=== PATIENT | male | born 1950 | race Asian ===

== ENCOUNTER 2020-11-12 08:58 | Emergency (ER) | payer MEDICARE, OTHER ==
[~2020-11-12] VITALS: Ht 154.9 cm; Wt 63.6 kg
[~2020-11-12 08:58] MED LIST: ASPI81TA87 PO; CARV12.580 PO; CLOP75TA60 PO; FENO130C14 PO; LEVE250T PO; LORA-702 PO; LOSA25TA2 PO; NITR0.4T SL; PSEU120T89 PO; ROSU40 PO; TRIA1TAB5 PO
[2020-11-12 09:14] VITALS: BP 137/78
[2020-11-12] MEDS ORDERED: BACITRACIN 0.9 GM PACKET OINTMENT TP ONE (10:00)
== END 2020-11-12 10:35 | disposition home or self-care (01) ==
LOC: EMS 08:58
DX: L30.9 Dermatitis, unspecified (principal); I10 Essential (primary) hypertension; I25.2 Old myocardial infarction; F17.210 Nicotine dependence, cigarettes, uncomplicated; Z79.82 Long term (current) use of aspirin
CPT/HCPCS: 99282; Z7502; Z7610